=== PATIENT | female | born 1985 | race African-American/Black ===

== ENCOUNTER 2017-06-28 07:39 | Inpatient (IN) | payer MEDICAID ==
[~2017-06-28 07:39] MED LIST: LIDOCAINE HCL 50 ML VIAL PERI PRN; MISOPROSTOL 100 MCG TABLET VG PRN; OXYTOCIN/DEXTROSE 5%-WATER 30 UNITS/500 ML BAG IV ONE; PENICILLIN G POTASSIUM 2.5 MILLIONUNT in DEXTROSE 5 % IN WATER 100 ML IV SCH; PENICILLIN G POTASSIUM 5 MILLIONUNT in DEXTROSE 5 % IN WATER 100 ML IV ONE
[2017-06-28] MEDS ORDERED: NORMAL SALINE IV ONE (08:00)
[2017-06-28] MEDS ORDERED: PENICILLIN POTASSIUM IV ONE (08:00)
[2017-06-28] MEDS: RINGER'S SOLUTION,LACTATED 1,000 ML IV PRN ×2 (08:02→09:58)
[2017-06-28 08:07] LABS: Hematocrit 29.7 % (37.0-47.0); Hemoglobin 9.8 gm/dL (12.5-16.0); Mean Cell Volume 75.6 fl (78-100); Mean Corpuscular Hemoglobin 24.9 pg (27-31); Mean Platelet Volume 12.4 fl (6.0-9.5); Neutrophil # 6.5 K/mm3 (1.3-6.0); Neutrophil % 67.9 % (42-75.0); Platelet Count 162 K/mm3 (150-450); Red Blood Count 3.93 M/mm3 (4.2-5.4); Red Cell Distribution Width 13.9 % (11.5-14.0); White Blood Count 9.6 K/mm3 (4.0-10.5)
[2017-06-28 08:26] LABS: Albumin * 2.7 gm/dl (3.4-5.0); Anion Gap 15.3 mmol/L (6.8-13.8); BUN/Creatinine Ratio 11.4 (9.0-21.6); Bilirubin, Total 0.3 mg/dL (0.0-1.1); Ca. Corrected For Albumin 9.1 mg/dL (8.4-10.2); Calcium * 8.4 mg/dL (7.9-10.9); Carbon Dioxide 20.8 mmol/L (24-32.6); Potassium 4.1 mmol/L (3.4-4.6); Total Protein 7.2 gm/dL (6.2-8.2)
[2017-06-28 08:37] LABS: Random Urine Total Protein 8.6 mg/dL (0-12)
[2017-06-28] MEDS ORDERED: LABETALOL HCL 200 MG TABLET PO STA (08:57)
[2017-06-28 09:01] LABS: Urine Bilirubin Negative (NEGATIVE); Urine Blood Negative /ul (NEGATIVE); Urine Ketone Negative (NEGATIVE); Urine Nitrite Negative (NEGATIVE); Urine Protein Negative (NEGATIVE); Urine Urobilinogen Normal (NORMAL); Urine pH 5.5 pH (5.0-7.0)
[2017-06-28 09:04] LABS: Cocaine Ur Negative (NEGATIVE); Urine Barbiturate Negative (NEGATIVE); Urine Benzodiazepines Negative (NEGATIVE); Urine Opiates Negative (NEGATIVE); Urine PCP Negative (NEGATIVE); Urine THC Negative (NEGATIVE)
[2017-06-28] MEDS ORDERED: ONDANSETRON HCL/PF 2 MG/ML VIAL IV PRN (09:07)
[2017-06-28] MEDS ORDERED: BUPIVACAINE HCL/0.9 % NACL/PF 250 ML EP PRN (09:07)
[2017-06-28] MEDS ORDERED: NALOXONE HCL 1 MG/1 ML SYRG IV PRN (09:07)
[2017-06-28 09:10] LABS: Urine Appearance Clear; Urine Bacteria None Seen; Urine Color Yellow; Urine RBC None Seen /hpf (0-5); Urine WBC None Seen /hpf (0-5)
[2017-06-28] MEDS ORDERED: fentaNYL CITRATE/PF 50 MCG/ML AMPUL IT SCH (09:15)
[2017-06-28] MEDS ORDERED: PENICILLIN G POTASSIUM 2.5 MILLIONUNT in DEXTROSE 5 % IN WATER 100 ML IV SCH ×2 (12:00)
[2017-06-28] MEDS ORDERED: BISACODYL 10 MG SUPP.RECT RC PRN (12:55)
[2017-06-28] MEDS ORDERED: BENZOCAINE/MENTHOL 81 SPRAY CAN TP PRN (12:55)
[2017-06-28] MEDS ORDERED: HYDROCORTISONE 30 APPL TUBE TP PRN (12:55)
[2017-06-28] MEDS ORDERED: GLYCERIN/WITCH HAZEL LEAF 40 APPL BOX TP PRN (12:55)
[2017-06-28] MEDS ORDERED: diphenhydrAMINE HCL 25 MG CAPSULE PO PRN (12:55)
[2017-06-28] MEDS ORDERED: SENNOSIDES 8.6 MG TABLET PO PRN (12:55)
--- NOTE | 2017-06-28 13:57 | OR ---
Anesthesia Procedure Note - Anesthesia Procedure Note Narrative: Vital Signs - Last Taken Temp 37.2 C 06/28/17 09:58 Pulse 79 06/28/17 13:36 Resp 16 06/28/17 13:36 BP 148/83 06/28/17 13:36 Pulse Ox 100 06/28/17 13:36 O2 Oxygen Delivery Method Room Air 06/28/17 13:57 ANESTHESIA PROCEDURE NOTE Date of Procedure: 06/28/2017 Time of procedure: 1010. Performed by: Curtis Lorenzana CRNA Cemetery Warden: None. Preprocedure diagnosis: Active labor. Post procedure diagnosis: Same. Procedure: Insertion of labor epidural. Indications: The patient is a 31 -year-old multigravida female in active labor requesting labor epidural for pain management. Findings: See below. Details of the procedure: The patient was placed in a sitting position. Back was prepped with DuraPrep. Patient was then draped in a sterile fashion. Lidocaine 1% was infiltrated to the skin and subcutaneous tissues at the level of the L3 4 interspace. The epidural space was identified using a 18-gauge Tuohy needle with [id number] technique. 20 mcg fentanyl was given intrathecally using a 27 ga. spinal needle. Epidural catheter was inserted without difficulty. Negative test dose was elicited using 5 mL of 1.5% preservative-free lidocaine plus epinephrine 1 200,000. The epidural catheter was then taped and secured in place. EBL: Minimal. Fluids: N/A. Specimen: N/A. Post procedure condition: The patient tolerated the procedure well. No complications were noted. Thank you for this consultation. Petit CRNA
--- NOTE | 2017-06-28 15:04 | OR ---
Operative Report - Dictated Report Narrative: Spontaneous Vaginal Delivery Note: 31 yo, AAF, at 38 weeks with severe gestational hypertension and with limited and late care was admitted for induction of labor. Dilated to 5 cm at admission. GBS was positive. Penicillin was started and Pitocin was started to induction of labor. Received epidural for labor pain. SROM at 6 cm with large clear fluid. Progressed to 8 cm and then started to having deep decels (early vs variable) down to 60 to 40s with each contractions, but recovered after contractions. Exam of the time was 8 cm, 90% and 0 station with a slightly tilted vertex to the right. The deep decels recurred with each contraction for the last 45 min until to delivery. At complete dilation, the perineum cleaned with betadine. Pushed with contractions and descent. Head delivered in OA over the perineum. Nuchal cord x 1 reduced after head delivered. The anterior and posterior shoulders delivered, followed by the rest of the baby with ease. Baby placed on maternal abdomen for drying and care by the nursing. Baby cried on maternal abdomen. Cord was clamped at one minute of life, and cut by father of baby. Cord blood was obtained. Placenta delivered intact with 3 vessel cord. Pitocin drip started after placenta delivered. Exam of the perineum, vaginal and cervix revealed no laceration. Fundus was massaged and firm. Bleeding was minimal. Mother and baby tolerated the delivery well. EBL 100 ml. Infant: female, 2836 grams, 6 lbs and 4 oz. 8/9. Time of delivery: 12:29. Placenta with thin cord was sent to pathology. Tre Kenny MD History for Definition: * The number of deliveries resulting in a live the patient experienced prior to current hospitalization * The previous delivery of live twins or any live multiple gestation is considered one live event. *If primagravida or nulliparous is documented select zero for the number of previous live births. Live Events: 4
[2017-06-28] MEDS: IBUPROFEN 800 MG TABLET PO PRN (16:38)
[2017-06-28] MEDS: DOCUSATE SODIUM 100 MG CAPSULE PO SCH (21:36)
[2017-06-29] MEDS: IBUPROFEN 800 MG TABLET PO PRN ×3 (01:21→20:35)
[2017-06-29] MEDS: FERROUS SULFATE 325 MG TABLET PO SCH ×3 (01:22→17:35)
[2017-06-29] MEDS: HYDROcodone/ACETAMINOPHEN 1 EACH TABLET PO PRN ×2 (06:37→20:35)
[2017-06-29] MEDS: DOCUSATE SODIUM 100 MG CAPSULE PO SCH ×2 (08:56→20:35)
--- NOTE | 2017-06-29 11:30 | PN ---
Subjective - Date and Time Seen Date: 06/29/17 Subjective Narrative: day 1, s/p BP slightly elevated, but patient denies headache. no complaints. bottle feeding. baby doing well. normal lochia. Objective - Vitals Vitals: Last Vital Signs Temp 36.7 C 06/29/17 06:41 Pulse 78 06/29/17 06:41 Resp 18 06/29/17 06:41 BP 152/87 06/29/17 06:41 Pulse Ox 96 06/29/17 06:41 - Exam Constitutional: Present: Alert, Oriented x3, Cooperative Respiratory: Present: no respiratory distress Cardiovascular/Chest: Present: normal peripheral pulses Abdomen: Present: soft, nontender, nondistended, other - fundus firm and non- tender Extremity: Present: normal range of motion, no pedal edema, no calf tenderness Skin Exam: Present: normal color, warm/dry, no cyanosis Appearance: Present: appropriate appearance Eye contact: Present: cooperative, good eye contact, normal speech Cauti Physician Documentation - Urinary Catheter Management Urethral (Delacruz) Date of Insertion: 06/28/17 Time of Insertion: 11:05 Date of Removal: 06/28/17 Time of Removal: 12:28 Assessment/Plan Plan Narrative: A: PPD#1, s/p for severe GHTN, BP mildly elevated, no symptoms. Plan: routine care. will not start BP medications for now. ambulation encouraged. Tre Kenny MD
[2017-06-29] MEDS ORDERED: NIFEdipine 10 MG CAPSULE PO SCH ×2 (21:45→23:15)
[2017-06-29 21:59] LABS: Hematocrit 27.8 % (37.0-47.0); Hemoglobin 9.3 gm/dL (12.5-16.0); Mean Cell Volume 75.7 fl (78-100); Mean Corpuscular Hemoglobin 25.3 pg (27-31); Mean Corpuscular Hgb Conc 33.5 g/dl (32-36); Mean Platelet Volume 12.7 fl (6.0-9.5); Neutrophil # 5.7 K/mm3 (1.3-6.0); Neutrophil % 60.4 % (42-75.0); Platelet Count 157 K/mm3 (150-450); Red Blood Count 3.67 M/mm3 (4.2-5.4); White Blood Count 9.5 K/mm3 (4.0-10.5)
[2017-06-29 22:12] LABS: Albumin * 2.6 gm/dl (3.4-5.0); Anion Gap 12.8 mmol/L (6.8-13.8); BUN/Creatinine Ratio 6.6 (9.0-21.6); Bilirubin, Total 0.2 mg/dL (0.0-1.1); Ca. Corrected For Albumin 9.1 mg/dL (8.4-10.2); Calcium * 8.3 mg/dL (7.9-10.9); Carbon Dioxide 25.4 mmol/L (24-32.6); Potassium 4.2 mmol/L (3.4-4.6); Total Protein 6.9 gm/dL (6.2-8.2)
[2017-06-29 22:19] LABS: Random Urine Total Protein 6.3 mg/dL (0-12)
[2017-06-30] MEDS: HYDROcodone/ACETAMINOPHEN 1 EACH TABLET PO PRN (07:09)
[2017-06-30] MEDS: IBUPROFEN 800 MG TABLET PO PRN (07:09)
[2017-06-30] MEDS ORDERED: LABETALOL HCL 100 MG TABLET PO SCH (08:45)
[2017-06-30] MEDS ORDERED: NIFEdipine 10 MG CAPSULE PO SCH (09:00)
[2017-06-30] MEDS: FERROUS SULFATE 325 MG TABLET PO SCH (09:18)
[2017-06-30] MEDS: DOCUSATE SODIUM 100 MG CAPSULE PO SCH (09:18)
[2017-06-30 09:19] VITALS: BP 131/68
--- NOTE | 2017-06-30 11:38 | PN ---
Subjective - Date and Time Seen Date: 06/30/17 Subjective Narrative: day 2, s/p induced for severe GHTN BP labile and some in the severe range. patient is asymptomatic, no headache or blurry vision. no complaints. was given procardia 10 mg po x 1 door and arrival attendant. BP now mildly elevated. Bottle feeding. Normal lochia. Placenta pathology showed early acute chorioamnionitis. discussed with patient. baby is doing well. Objective - Vitals Vitals: Last Vital Signs Temp 36.8 C 06/30/17 07:10 Pulse 81 06/30/17 09:18 Resp 20 06/30/17 07:10 BP 131/68 06/30/17 09:18 Pulse Ox 95 06/30/17 07:10 - Abnormal Lab Findings Abnormal Lab Findings: Abnormal Lab Results 06/29/17 06/29/17 06/29/17 Range/Units 21:45 21:58 21:58 RBC 3.67 L (4.2-5.4) M/mm3 Hgb 9.3 L (12.5-16.0) gm/dL Hct 27.8 L (37.0-47.0) % MCV 75.7 L (78-100) fl MCH 25.3 L (27-31) pg MPV 12.7 H (6.0-9.5) fl Immature Gran % (Auto) 0.70 H (0.001-0.429) % Immature Gran # (Auto) 0.07 H (0.000-0.0310) K/mm3 BUN/Creatinine Ratio 6.6 L (9.0-21.6) ALT 13 L (19-67) U/L Albumin 2.6 L (3.4-5.0) gm/dl Ur Random Creatinine 48.7 L (60-200) mg/dL - Exam Constitutional: Present: Alert, Oriented x3, Cooperative Respiratory: Present: no respiratory distress Cardiovascular/Chest: Present: normal peripheral pulses Abdomen: Present: soft, nontender, nondistended, other - fundus firm and non- tender Extremity: Present: normal range of motion, no pedal edema, no calf tenderness Skin Exam: Present: normal color, warm/dry, no cyanosis Appearance: Present: appropriate appearance Eye contact: Present: cooperative, good eye contact, normal speech Cauti Physician Documentation - Urinary Catheter Management Urethral (Delacruz) Date of Insertion: 06/28/17 Time of Insertion: 11:05 Date of Removal: 06/28/17 Time of Removal: 12:28 Assessment/Plan Plan Narrative: A: PPD#2, s/p with severe GHTN, BP still labile with some in severe range. Procardia started today. Plan: will send home with procardia 10 mg q8h. follow up one week in clinic for BP check. preeclampsia precautions given. Tre Kenny MD
== END 2017-06-30 13:50 | disposition home or self-care (01) | DRG 775 ==
LOC: OB 07:39
PROVIDERS: ADMIT Obstetrics & Gynecology; ATTEND Obstetrics & Gynecology
PROC: 10E0XZZ Delivery of Products of Conception, External Approach (ICD-10-PCS; principal; 2017-06-28)
PROC: 3E0P3VZ Introduction of Hormone into Female Reproductive, Percutaneous Approach (ICD-10-PCS; 2017-06-28)
PROC: 4A1HXCZ Monitoring of Products of Conception, Cardiac Rate, External Approach (ICD-10-PCS; 2017-06-28)
PROC: 00HU33Z Insertion of Infusion Device into Spinal Canal, Percutaneous Approach (ICD-10-PCS; 2017-06-28)
DX: O13.4 Gestational [pregnancy-induced] hypertension without significant proteinuria, complicating childbirth (principal); O69.81X0 Labor and delivery complicated by cord around neck, without compression, not applicable or unspecified; O99.824 Streptococcus B carrier state complicating childbirth; O99.02 Anemia complicating childbirth; D64.9 Anemia, unspecified; Z3A.38 38 weeks gestation of pregnancy; Z37.0 Single live birth